=== PATIENT | male | born 1990 | race Caucasian/White ===

== ENCOUNTER → 2017-12-08 10:10 | Outpatient (CLI) | payer OTHER, SELFPAY ==
--- NOTE | 2017-12-08 10:21 | XR_ITS ---
XR knee LT 3V HISTORY: ITS.REASON: LT KNEE PAIN ORDERING PHYSICIAN: Yuki Ribeiro PATIENT AGE: 27 years COMPARISON: None FINDINGS: No fracture or dislocation. No lytic or blastic change. Normal mineralization. No significant arthritic changes evident. No other significant findings IMPRESSION: Negative Knee
== END ==
PROVIDERS: PCP Family Medicine; Visit Provider Nurse Practitioner Family
DX: M25.562 Pain in left knee (principal)
CPT/HCPCS: 73562